=== PATIENT | female | born 2000 | race Caucasian/White ===

== ENCOUNTER 2024-10-31 09:30 | Inpatient (IN) | payer OTHER, SELFPAY ==
[2024-10-30 17:08] LABS: Hematocrit 37.6 % (37-47); Hemoglobin 12.6 g/dL (12.0-15.0); Immature Granulocytes Count 0.040 X10^3/uL (0.0-0.0); Mean Corp Hgb Conc 33.5 g/dL (32-36); Mean Corpuscular Volume 88.9 fL (81-99); Mean Platelet Vol. 11.1 fl (6.2-12.0); NRBC Flagged by Analyzer 0 % (0-5); Platelet Count 278 K/mm3 (150-450); RBC Distribution Width CV 14.9 % (11.6-14.6); RBC Distribution Width SD 48.3 fl (35.1-43.9); Red Blood Count 4.23 M/mm3 (4.2-5.4); White Blood Count 8.9 K/mm3 (4.4-11.0)
[2024-10-30 17:55] LABS: HIV Nonreactive (Nonreactive); Hepatitis B Surface Antigen Nonreactive (Nonreactive); Hepatitis C Antibody Nonreactive (Nonreactive); Syphilis Antibodies Nonreactive (Nonreactive)
[2024-10-31] VITALS (15 sets, daily range): BP systolic 93–121; BP diastolic 58–80; PULSE 54–103; RESP 14–23; TEMP 36.2–37; O2SAT 97–100; BMI 28.3
[2024-10-31] MEDS: Lactated Ringers 1,000 ML 999 ML IV (10:30)
[2024-10-31 11:03] LABS: Hematocrit 36.0 % (37-47); Hemoglobin 12.2 g/dL (12.0-15.0); Immature Granulocytes Count 0.030 X10^3/uL (0.0-0.0); Mean Corp Hgb Conc 33.9 g/dL (32-36); Mean Corpuscular Volume 88.9 fL (81-99); Mean Platelet Vol. 11.1 fl (6.2-12.0); NRBC Flagged by Analyzer 0 % (0-5); Platelet Count 254 K/mm3 (150-450); RBC Distribution Width CV 14.9 % (11.6-14.6); RBC Distribution Width SD 49.0 fl (35.1-43.9); Red Blood Count 4.05 M/mm3 (4.2-5.4); White Blood Count 8.7 K/mm3 (4.4-11.0)
--- NOTE | 2024-10-31 11:25 | PCM.PRE.AN2 ---
ASA Classification* ASA Classification ASA Classification: 1 Assessment & Plan Anesthesia* Anesthesia Assessment Anesthesia Assessment: Discussed sedation and/or anesthesia options, risks, benefits, and alternatives with patient/parents/legal guardian/POA. Questions invited. The patient/parents/legal guardian/POA seems to understand and agrees to proceed with anesthesia plan. Reviewed the physical assessment, medical history, allergy history and patient home medications list prior to surgery/procedure/anesthetic and documented any changes. Performed airway and anesthesia risk assessments. Anesthesia Type Anesthesia Type: Spinal Anesthesia Focused Assessment* Airway Assessment Mouth opens: >3 cm Mallampati Score: II Labs Anesthesia Preop lab: CBC WBC 8.7 K/mm3 (4.4-11.0) 10/31/24 10:30 10/31/24 RBC 4.05 M/mm3 (4.2-5.4) L 10/31/24 10:30 10/31/24 Hgb 12.2 g/dL (12.0-15.0) 10/31/24 10:30 10/31/24 Hct 36.0 % (37-47) L 10/31/24 10:30 10/31/24 Plt Count 254 K/mm3 (150-450) 10/31/24 10:30 10/31/24 CHEMISTRY COAG Pre-Assessment Diagnosis/Proposed Procedure Planned Operative Procedure(s): Primary Section Anesthesia History Anesthesia History - model photographers': Anesthesia History - model photographers' Hx Hospitalization Any Problems With Anesthesia Cholinesterase deficiency You/Your Family Experience fever (hyperthermia) with Relationship Recent Exposure to Contagious Disease Does patient have nerve stimulator Patient instructed to have device shut off --Does patient have Pacemaker or ICD? When Was Last Pacemaker Check QUESTION #4 FULL TEXT: You/Your Family Experience fever (hyperthermia) with Anesthesia Last Oral Intake Last Oral intake: Last Oral Intake NPO since Meds taken in AM with sips of water? Meds patient instructed to take am of surgery PONV PONV - model photographers': PONV - model photographers' Female HX of Motion Sickness HX of N/V After Surgery Non-Smoker Duration of Surgery greater than 60 minutes Number of Risk Factors PONV Score Height & Weight Height & Weight: Anesthesia: Height & Weight Height 5 ft 7 in 10/31/24 09:47 Weight: 82 kg 07/23/25 09:47 Body Mass Index (BMI) 28.3 10/31/24 09:47 Respiratory Assessment Respiratory Assessment - model photographers': Respiratory Tract Infection Hx - model photographers' Hx Respiratory Tract Infection STOP Sleep Apnea STOP Sleep Apnea - model photographers': STOP Sleep Apnea - model photographers' Hx Hypertension Hx Sleep Apnea CPAP BIPAP Do you snore loudly (louder than talking or can be heard Do you often feel tired/ fatigued/ sleepy during daytime? Has anyone observed you stop breathing during sleep? STOP Results QUESTION #5 FULL TEXT : Do you snore loudly (louder than talking or can be heard through closed doors)? Tobacco Use History Tobacco Use History - model photographers': Tobacco Use History - model photographers' Tobacco Use Smoking Status Never smoker 10/31/24 11:08 Hx Tobacco Use No 10/31/24 11:08 Years Smoking Packs Smoked per Day Smoking Cessation Date was within the last 15 years Hx Smoking Cessation Date Hx Smoking Cessation Counseling Hematologic Medial History Hematologic Hx - model photographers': Hematologic Medical Hx - director compliance Hx of Blood Transfusion Hx of Transfusion in last 3 Months Date of Last Transfusion (if within last 3 months) Ever experience any problems with transfusion(s)? Specify any problems Hx of Preganancy in last 3 Months Nurse Filling Out Transfusion & Questions: Date: Time: Patient unable to answer at this time (ie. confused, unrespo /Reproduction History /Reproductive History - model photographers': /Reproductive Hx- model photographers' Hx Now Yes 10/31/24 11:08 Gestational Age (in weeks): 40 10/31/24 11:08 EDC: 10/28/24 10/31/24 11:08 Hx 1 10/31/24 11:08 Hx Para 0 10/31/24 11:08 Hx Section SAB 0 10/31/24 11:08 Yes 10/31/24 11:08 Active Medications Active Medications: Current Medications Generic Name Dose Route Start Last Admin Trade Name Freq PRN Reason Stop Dose Admin Lactated Ringer's 1,000 mls @ 150 mls/hr 10/31/24 09:45 IV .[id number] TEDDY Sodium Chloride 5 - 15 ml 10/31/24 09:43 0.9% Saline Lock 10 Ml Syringe IV PRN PRN SALINE FLUSH PFSH Home Medications ?Medication ?Instructions ?Recorded ?Last Taken ?Type docosahexaenoic acid 200 mg mg PO 10/30/24 Unknown History capsule ( DHA) Allergy/AdvReac Type Severity Reaction Status Date / Time No Known Allergies Allergy Unverified 10/30/24 10:00 Family History (Updated 10/30/24 @ 16:04 by Kourtney Smith) Grandfather Myocardial infarction Social History (Updated 10/30/24 @ 16:04 by Kourtney Smith) Smoking Status: Never smoker alcohol intake: never substance use type: does not use caffeine: Yes what type of physical activity do you participate in: walking and swimming frequency: 5-6 times per week seatbelt use: always do you feel safe at home: Yes additional social history: -Baldo Review of Systems (Anesthesia) ROS Narrative System reviewed and no additional complaints, except as documented.
[2024-10-31] MEDS: Lactated Ringers 1,000 ML 150 ML IV (11:32)
--- NOTE | 2024-10-31 11:38 | HP.PCM.OB_ITS ---
HPI - General General Date of Admission: 10/31/24 HPI Narrative ANNIE DUFF, is a 24 y/o @ 40 weeks 3 days who presents to L&D for a scheduled section for breech presentation. Maternal Data Information DANDRE Calculator Estimated Delivery Date Method Current WG Current Estimate 10/28/24 LMP (Certain) 40w 3d PFSH PFSH Home Medications ?Medication ?Instructions ?Recorded ?Last Taken ?Type docosahexaenoic acid 200 mg mg PO DAILY vitamin 10/27/24 12:00 History capsule ( DHA) 600 mg Allergy/AdvReac Type Severity Reaction Status Date / Time No Known Allergies Allergy Unverified 10/30/24 10:00 Family History (Updated 10/30/24 @ 16:04 by Kourtney Smith) Grandfather Myocardial infarction Social History (Updated 10/30/24 @ 16:04 by Kourtney Smith) Smoking Status: Never smoker alcohol intake: never substance use type: does not use caffeine: Yes what type of physical activity do you participate in: walking and swimming frequency: 5-6 times per week seatbelt use: always do you feel safe at home: Yes additional social history: -Baldo History 1 Elective abortions Hx Para 0 Spontaneous abortions Hx # Term Pregnancies Ectopic pregnancies Hx # Pregnancies Multiple births # of living children Visit Details OB Flowsheet Initial Weight: Not Recorded Date -?-?-?-?-?-?-?-?-?-?-?-?- EGA Weight BP Urine Prot -?-?-?-?-?-?-?-?-?-?--?-?- Glucose FHR FuHt Pres Dilation -?-?-?-?-?-?-?-?-?-?-?-?- Effaced St Visit Note 10/30/24 -?-?-?-?-?-?-?-?-?-?-?-?- 40w 2d 180 lb 124/84 Negative -?-?-?-?-?-?-?-?-?-?-?-?- Negative 140 Breech 0 -?-?-?-?-?-?-?-?-?-?-?-?- JV- 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 Has s cheduled section tomorrow. ROS Constitutional Constitutional: Denies change in weight, fatigue, fever(s), headache(s), poor appetite or weakness Eyes Eyes: Denies blurry vision, change in vision, seeing flashes or spots in vision ENT HEENT: Denies dizziness, headache(s), loss taste/smell or sore throat Cardiovascular Cardiovascular: Denies chest pain, dizziness, dyspnea, irregular heart rhythm, leg edema, palpitations, rapid heart rate or vomiting Respiratory/Chest Respiratory/Chest: Denies chest tightness, cough, dyspnea or breast pain Gastrointestinal Gastrointestinal: Denies abdominal pain, anorexia, constipation, cramping, diarrhea, hemorrhoids, vomiting or weight changes Genitourinary Genitourinary: Denies dysuria, flank pain, genital lesions, genital pain, urinary frequency or urinary urgency Musculoskeletal Musculoskeletal: Denies back pain, difficulty walking, joint pain, limited range of motion, muscle cramps or numbness Integumentary Integumentary: Denies lesions or unusual bruising Neurologic Neurologic: Denies abnormal movements, abnormal speech, dizziness, numbness, seizure-like activity or syncope Psychiatric Psychiatric: Denies anxiety, behavioral changes, change in appetite, change in libido, cognitive impairment, confusion, depression, difficulty concentrating, hallucinations or suicidal thoughts Endocrine Endocrinology: Denies excessive sweating, polydipsia or polyuria Hematologic/Lymphatic Hematologic/Lymphatic: Denies easy bleeding, easy bruising or lymphadenopathy Allergic/Immunologic Allergic/Immunologic: Denies itchy eyes, lip swelling, seasonal rhinorrhea, rhinitis, throat swelling, tongue swelling, eczemia, wheezing or asthma Vital Signs Vital Signs Vital Signs: Weight Weight: 180 lb 12.465 oz Body Mass Index (BMI) 28.3 Physical Exam Const alert, oriented x3, no apparent distress and healthy appearing General Appearance: cooperative; Negative for anxious HEENT normocephalic Face and Sinus: normal facial exam Eyes EOMs intact bilaterally and no scleral icterus General Eye: normal appearance of both eyes Neck full ROM and supple Lymph Lymphatic: no lymphadenopathy noted Resp normal respiratory effort Effort and Inspection: able to speak in complete sentences Cardio regular rate GI soft to palpation and non-tender Inspection: gravid Palpation: soft; Negative for tender external exam normal Back/Spine no CVA tenderness Extremity normal to inspection, full ROM and no clubbing, cyanosis or edema General Extremity: Negative for calf tenderness or edema Skin Lesions: no lesions Rashes: no rashes Psych mental status grossly normal Labs Labs Labs: Blood Type A POSITIVE Antibody Screen NEGATIVE Hct 36.0 % (37-47) L Hgb 12.2 g/dL (12.0-15.0) Syphilis Total Ab Nonreactive (Nonreactive) Rubella IgG Antibody REAC (Nonreactive) Hep Bs Antigen Nonreactive (Nonreactive) Hepatitis C Antibody Nonreactive (Nonreactive) HIV 1&2 Antibody Nonreactive (Nonreactive) Assessment & Plan (1) Breech presentation of fetus: (2) Supervision of high-risk : COMMENT: DANDRE 10/28/24 :Baldo PLAN: Plan After discussing the patient's diagnosis and treatment plan options, patient wishes to proceed with surgical management. I have discussed with the patient the risks, benefits, and alternatives of the procedure which include but are not limited to risks of anesthesia, bleeding, infection, possible damage to bowel, bladder, or surrounding vasculature which could lead to additional surgery to evaluate any complications. Patient agrees to procedure and wishes to proceed. ACOG/uptodate references given for additional information regarding procedure.
--- NOTE | 2024-10-31 12:15 | DCINST_ITS ---
Discharge Instructions DC O2, CPAP, BIPAP needs Home O2 Discharge instructions: No Dressing / Incision Discharge Activity: May Not Drive (for 2 weeks or while taking narcotic pain medications.), May Shower and May Take a Tub Bath (in 7 days.) May resume sexual activity in: 4-6 weeks Weight Bearing Status: Full weight bearing Lifting Restrictions: 20 pounds Dressing / Incision Call your doctor if your incision/area has: Continuous Slow Oozing, Sudden Increased Bleeding, Increased Pain/ Swelling, Increased Redness and Foul Smelling Discharge Call your doctor if you observe: Fever of 101 or Higher and Using more than 1 pad per hour Suture Line Care: Avoid Pulling/Pushing and Avoid Pinching/Bending Cleanse incision/area with: Soap & Water and Keep Dressing Clean & Dry Follow Up Care Please Follow Up With: Noemi Rogers DO When: Call [phone] to make an appointment for an incision check in 1-2 weeks. Test Results: Test results from this visit will be discussed in further detail at your follow- up appointment, if applicable. Discharge Plan Admission Admit Date/Time: 10/31/24 09:30 Primary Reason for Your Visit: section Attending Provider: Noemi Rogers Primary Care Provider: Care PhysicianMagi Primary Discharge Orders/Prescriptions Prescriptions: New ibuprofen 800 mg tablet 800 mg PO Q8H PRN (Reason: pain) Qty: 30 0RF oxycodone-acetaminophen [Percocet] 5-325 mg tablet 1 tab PO Q4H PRN (Reason: pain) 7 Days Qty: 20 0RF Continued DHA 200 mg capsule PO DAILY Referrals / Follow Up: Care PhysicianMagi Primary [Primary Care Provider] - Disposition Disposition (needs filled in before D/C Order can be placed): Home, Self Care
--- NOTE | 2024-10-31 13:13 | EX.PCM.OBRPT ---
Assessment & Plan (1) Breech presentation of fetus: Maternal Data Information DANDRE Calculator Estimated Delivery Date Method Current WG Current Estimate 10/28/24 LMP (Certain) 40w 3d Final DANDRE: 10/28/24 Final DANDRE Source: LMP Gestational age: 40 weeks 3 days Operative Report (OB) Details Procedure Type: low transverse Date of Procedure: 10/31/24 Procedure Start Time: 12:32 Pre-Operative Diagnosis: Breech Post-Operative Diagnosis: Same as Pre-operative diagnosis Classification: Scheduled Type of Anesthesia: Spinal Antibiotic Given: Ancef 2 grams IV x1 Drain: Lo to straight drain Estimated Blood Loss: 300cc Findings Description of surgery: The patient was brought to the operating room, spinal anesthesia was found to be adequate. She was prepped and draped in the normal sterile fashion and was placed in a dorsal supine position with a leftward tilt. Pfannenstiel skin incision was made with a scalpel and carried through to the underlying layers. The fascia was nicked in the midline and extended laterally using Barrera scissors. The anterior aspect of the fascia was grasped with Michael clamps and the underlying rectus muscles dissected off using the Metzenbaum scissors. The rectus muscles were in the midline. Peritoneum was entered sharply. The uterus was identified and a bladder blade was inserted into the abdomen. Bladder flap was created off the uterus using Metzenbaum scissors. A transverse incision was made with a scalpel and extended laterally manually. The infant's feet were first to present and were gently grasped and guided out of the uterine incision. The legs and torso followed. The anterior shoulder was carefully swept across the chest. The was rotated to the opposite side and opposite arm was swept down and over the chest. The head was delivered with the help of my assistant gm of content & delivery using fundal pressure and also a finger in the mouth to flex the head. The mouth and nares were bulb suctioned. After a 30 second delay the cord was clamped and cut. The end was handed off to the awaiting jigsaw operator for routine assessment. Placenta was delivered manually without difficulty but was noted to be bilobed and sent for pathology analysis. The uterus was exteriorized and cleared of all clots and debris. Incision was closed with an 0 Vicryl suture in a running locked fashion. Second layer of 1-0 monocryl suture was used in imbricating manner to create excellent closure and hemostasis. The uterus was returned to the abdomen. The gutters were cleared of all clots and debris. The peritoneum was closed in a pursestring pattern using a 3-0 Vicryl suture. The fascia was closed with a stratafix suture. Subcutaneous tissue layer was irrigated then closed using a plain gut suture. The skin was closed with a 4-0 Monocryl subcuticular stitch. The skin was also sealed with surgical glue. The patient tolerated the procedure well sponge lap and needle counts were correct at each tissue closure plane and the patient is now being brought to the recovery room in stable condition. The assistant gm of content & delivery helped with retraction, suction, and suture cutting. She also helped with fundal pressure to assist with the delivery of the infant. Surgical findings: viable male Saul, normal uterus, tubes, and ovaries Presentation: Jamie Breech Amniotic Membrane Rupture Type: Artificial Amniotic Fluid Description: Clear Placental Delivery Description: Expressed Placenta Disposition: [facility] Specimen collected: No Cord Vessel Description: 3 Vessels Cord Entanglement: None Infant A gender: Male (1 minute): 8 (5 minute): 9 Delayed Cord Clamping: Yes Skip Hoist Engineer is/it project manager: Yes Dragline Engineer: Imtiaz Marx Tasks completed by journeyman operator assistant: Closing, Hemostasis: Clamp, Hemostasis: Electrocautery and Retracting Additional assistant gm of content & delivery?: No Complications Complications: No Admit VTE Documentation VTE Present on Admission: No VTE Mechan Device Prophylaxis: SCD's VTE Pharm Prophylaxis Ordered: No Multi Select Codes Urinary/Genital Urinary/Genital CPT Codes: 44853 Delivery [facility]
[2024-10-31] MEDS: Oxytocin 15 Units/NS 250ml 15 UNITS/250 ML IV.SOLN 83 UNITS IV (13:25)
[2024-10-31] MEDS: Ketorolac 30 MG/ML Syringe IV ×2 (14:31→19:59)
[2024-10-31] MEDS: 0.9% Saline Lock 10 ML Syringe IV ×2 (17:07→20:00)
--- OUTSIDE RECORDS SUMMARY | 2024-10-31 18:05 | XMS RPT_ITS | CCD ---
Author Organization [facility] Care Team Providers Care Ranch Manager Name Role Phone Dr. Noemi Rogers DO Attending Provider Medications Current Medications Medication Drug Class(es) Dates Sig (Normalized) Sig (Original) docosahexaenoic acid 200 mg oral capsule (1 source) Start: 10-30-2024 Docosahexaenoic Acid ( Dha) 200 mg capsule Active mg PO October 30, 2024 12:00am Problems Problem Classification Problem Date Documented Da te Episodic/Chronic Malposition; malpresentation (1 source) Breech presentation; Translations: [Maternal care for breech presentation, not applicable or unspecified] 10-30-2024 Episodic Other complications of (1 source) High risk ; Translations: [Supervision of high risk , unspecified, unspecified trimester] 10-30-2024 Episodic Comment on above: DANDRE 10/28/24 Hus band:Baldo Vital Signs Date Time Vital Sign Value Performing Clinician Michelle barksdale 10-30-2024 16:02-0400 Body height 170.[address] Noemi Rogers DO Work Phone: [facility] 10-30-2024 16:02-0400 Body mass index (BMI) [Ratio] 28.1 kg/m2 Dr. Noemi Rogers DO Work Phone: [facility] 10-30-2024 16:02-0400 Body weight 81.[address] Noemi Rogers DO Work Phone: [facility] 10-30-2024 16:02-0400 Diastolic blood pressure 84 mm[Hg] Dr. Noemi Rogers DO Work Phone: [facility] 10-30-2024 16:02-0400 Systolic blood pressure 124 mm[Hg] Dr. Noemi Rogers DO Work Phone: [facility] Encounters Encounter Date Encounter Type Care Provider Facility Start: 10-30-2024 End: 10-30-[address] Noemi Rogers DO Work Phone: -[facility] Start: 10-30-2024 End: 10-30-[address] Noemi Rogers DO -[facility] Work Phone: Plan of Treatment Date Care Activity Detail Author Polymerase chain reaction analysis [facility] Streptococcus agalac tiae [Presence] in Unspecified specimen by Organism specific culture [facility] Payers Date Payer Category Payer Policy ID Unknown [id number] Social History Date Type Detail Facility Start: 10-30-2024 Tobacco smoking stat us [place] Never smoked tobacco (finding) [facility] Start: 2000 Sex Assigned At Female [facility] Evaluation note Note Date & Type Note Facility Evaluation note No assessment information availa ble [facility] [employer] Work Phone: Reason for referral (narrative) Note Date & Type Note Facility Reason for referral (narrative) No reason for referral information available [facility] Work Phone: Chief Complaint and Reason for Visit Chief Complaint Admit Date Pre-op c/section 10/31/24 October 30, 2024 3:43pm Additional Source Comments Care Teams (unrecognized sec tion and content) Team Status: Inactive Member Role/Relationship Status Dates Dr. Noemi Rogers DO Attending Provider Activ e Start: October 30, 2024 End: October 30, 2024 Goals (unrecognized section and content) Goals may be documented in a n alternate section FOR RECORDS PERTAINING TO PATIENTS WHO ARE OR HAVE BEEN ENROLLED IN A CHEMICAL DEPENDENCY/SUBSTANCEABUSE PROGRAM, SOME INFORMATION MAY BE OMITTED. This clinical summary was aggregated from multiple sources. Caution should be exercised in using it in the provision of clinical care. This summary normalizes information from multiple sources, and as a consequence, information in this document may materially change the coding, format and clinical context of patient data. In addition, data may be omitted in some cases. CLINICAL DECISIONS SHOULD BE BASED ON THE PRIMARY CLINICAL RECORDS. [facility] [employer] [facility]. provides no warranty or guarantee of the accuracy or completeness of information in this document.
[2024-11-01 00:25] VITALS: BP 117/65; PULSE 70; RESP 16; O2SAT 98
[2024-11-01] MEDS: 0.9% Saline Lock 10 ML Syringe IV ×2 (02:20→08:27)
[2024-11-01] MEDS: Ketorolac 30 MG/ML Syringe IV ×2 (02:20→08:27)
[2024-11-01 02:34] VITALS: BP 110/66; PULSE 110; RESP 16; TEMP 36.2; O2SAT 97
[2024-11-01 06:40] LABS: Hematocrit 28.7 % (37-47); Hemoglobin 9.7 g/dL (12.0-15.0); Mean Corp Hgb Conc 33.8 g/dL (32-36); Mean Corpuscular Volume 88.6 fL (81-99); Mean Platelet Vol. 11.1 fl (6.2-12.0); Platelet Count 219 K/mm3 (150-450); RBC Distribution Width CV 14.9 % (11.6-14.6); RBC Distribution Width SD 48.1 fl (35.1-43.9); Red Blood Count 3.24 M/mm3 (4.2-5.4); White Blood Count 15.8 K/mm3 (4.4-11.0)
--- NOTE | 2024-11-01 07:30 | PCM.PN.OB ---
Subjective Subjective Patient doing well without complaints. Tolerating PO. Ambulating and voiding without difficulty. feeding well. Denies chest pain, shortness of breath, calf pain/swelling, fevers, chills, lightheadedness. Objective Data Objective Data Vital Signs: Vital Signs Temp Pulse Resp BP Pulse Ox O2 Del Method 97.2 F L 110 H 16 110/66 97 Room Air 11/01/24 02:34 11/01/24 02:34 11/01/24 02:34 11/01/24 02:34 11/01/24 02:34 11/01/24 02:34 Oxygen Delivery Method Room Air Weight: 180 lb 12.465 oz Body Mass Index (BMI) 28.3 Intake & Output: Intake and Output for Last 24 Hours 10/30/24 10/31/24 11/01/24 23:59 23:59 23:59 Intake Total 1407 / 1407 Output Total 200 / 200 100 / 100 Balance 1207 / 1207 -100 / -100 Lab / Micro Data 11/01/24 06:20 Labs: Laboratory Results - last 24 hr 10/30/24 16:10: WBC 8.9, RBC 4.23, Hgb 12.6, Hct 37.6, MCV 88.9, MCH 29.8, MCHC 33.5, RDW Std Deviation 48.3 H, RDW Coeff of Lopez 14.9 H, Plt Count 278, MPV 11.1, Immature Gran % (Auto) 0.500, Neut % (Auto) 79.6 H, Lymph % (Auto) 13.1 L, Trigg % (Auto) 5.6, Eos % (Auto) 1.0, Baso % (Auto) 0.2, Absolute Neuts (auto) 7.1, Absolute Lymphs (auto) 1.16, Nucleated RBC % 0, Hemoglobin A1c 5.2, Syphilis Total Ab Nonreactive, Hep Bs Antigen Nonreactive, Hepatitis C Antibody Nonreactive, HIV 1&2 Antibody Nonreactive, Rubella IgG Antibody REAC, Blood Type A POSITIVE, Antibody Screen NEGATIVE 10/31/24 10:30: WBC 8.7, RBC 4.05 L, Hgb 12.2, Hct 36.0 L, MCV 88.9, MCH 30.1, MCHC 33.9, RDW Std Deviation 49.0 H, RDW Coeff of Lopez 14.9 H, Plt Count 254, MPV 11.1, Immature Gran % (Auto) 0.300, Neut % (Auto) 77.1 H, Lymph % (Auto) 14.3 L, Trigg % (Auto) 6.5, Eos % (Auto) 1.6, Baso % (Auto) 0.2, Absolute Neuts (auto) 6.7, Absolute Lymphs (auto) 1.25, Nucleated RBC % 0, Blood Type A POSITIVE, Antibody Screen NEGATIVE 11/01/24 06:20: WBC 15.8 H, RBC 3.24 L, Hgb 9.7 L, Hct 28.7 L, MCV 88.6, MCH 29.9, MCHC 33.8, RDW Std Deviation 48.1 H, RDW Coeff of Lopez 14.9 H, Plt Count 219, MPV 11.1 Micro: Microbiology 10/30/24 Unknown Urine, Clean Catch Chlamydia/Neisseria (PCR) - Final ROS Constitutional Constitutional: Reports systems reviewed and no addt'l complaints, except as documented Cardiovascular Cardiovascular: Reports systems reviewed and no addt'l complaints, except as documented Respiratory/Chest Respiratory/Chest: Reports systems reviewed and no addt'l complaints, except as documented Gastrointestinal Gastrointestinal: Reports systems reviewed and no addt'l complaints, except as documented Physical Exam Const alert, oriented x3 and no apparent distress HEENT Head and Scalp: atraumatic Resp normal respiratory effort GI soft to palpation and non-tender Inspection: incision intact, healing well and drainage (none) Bimanual Exam - Vag & Uterus: uterus non-tender Uterus Palpation: uterus fundus firm (below Umbilicus) Assessment & Plan (1) Status post delivery: PLAN: Plan s/p LTCS PPD # 1 1. routine post care 2. breast feeding- support given 3. rh positive 4. rubella immune
[2024-11-01 08:00] VITALS: BP 109/68; PULSE 70; RESP 16; TEMP 36.1; O2SAT 97
[2024-11-01 14:45] VITALS: BP 96/94; PULSE 70; RESP 16; TEMP 36.2; O2SAT 99
[2024-11-01 20:38] VITALS: BP 113/59; PULSE 82; RESP 16; TEMP 36.6; O2SAT 98
[2024-11-02 02:05] VITALS: BP 131/81; PULSE 75; RESP 18; TEMP 36.7; O2SAT 100
--- NOTE | 2024-11-02 07:57 | PCM.PN.OB ---
Subjective Subjective Patient doing well without complaints. Tolerating PO. Ambulating and voiding without difficulty. Feeding well. Denies chest pain, shortness of breath, calf pain/swelling, fevers, chills, lightheadedness. Objective Data Objective Data Vital Signs: Vital Signs Temp Pulse Resp BP Pulse Ox O2 Del Method 98.0 F 75 18 131/81 H 100 Room Air 11/02/24 02:05 11/02/24 02:05 11/02/24 02:05 11/02/24 02:05 11/02/24 02:05 11/02/24 02:05 Oxygen Delivery Method Room Air Weight: 180 lb 12.465 oz Body Mass Index (BMI) 28.3 Intake & Output: Intake and Output for Last 24 Hours 10/31/24 11/01/24 11/02/24 23:59 23:59 23:59 Intake Total 1407 / 1407 Output Total 200 / 200 750 / 750 Balance 1207 / 1207 -750 / -750 Lab / Micro Data Attestation: I reviewed the patient's lab results. 11/01/24 06:20 Micro: Microbiology 10/30/24 Unknown Urine, Midstream Urine Culture - Preliminary Mixed Gram Positive Organisms 10/30/24 Unknown Urine, Clean Catch Chlamydia/Neisseria (PCR) - Final ROS Constitutional Constitutional: Reports systems reviewed and no addt'l complaints, except as documented; Denies anorexia or headache(s) Cardiovascular Cardiovascular: Reports systems reviewed and no addt'l complaints, except as documented; Denies dizziness, dyspnea, nausea or tachypnea Respiratory/Chest Respiratory/Chest: Reports systems reviewed and no addt'l complaints, except as documented; Denies cough, dyspnea, shortness of breath at rest or tachypnea Gastrointestinal Gastrointestinal: Reports systems reviewed and no addt'l complaints, except as documented; Denies abdominal pain, constipation or nausea Genitourinary Genitourinary: Reports systems reviewed and no addt'l complaints, except as documented; Denies burning urination, difficulty urinating, dysuria, urinary frequency or urinary incontinence Musculoskeletal Musculoskeletal: Reports systems reviewed and no addt'l complaints, except as documented Integumentary Integumentary: Reports systems reviewed and no addt'l complaints, except as documented Neurologic Neurologic: Reports systems reviewed and no addt'l complaints, except as documented; Denies abnormal speech, dizziness or headache(s) Psychiatric Psychiatric: Reports systems reviewed and no addt'l complaints, except as documented Endocrine Endocrinology: Reports systems reviewed and no addt'l complaints, except as documented Hematologic/Lymphatic Hematologic/Lymphatic: Reports systems reviewed and no addt'l complaints, except as documented Physical Exam Const alert, oriented x3 and no apparent distress Neck full ROM Resp normal respiratory effort, normal air movement and no retractions Effort and Inspection: able to speak in complete sentences and symmetric chest movement GI soft to palpation Inspection: incision intact Bladder / Kidney Exam: bladder normal to palpation Uterus Palpation: uterus fundus firm Extremity normal to inspection and full ROM Psych mental status grossly normal, thought process normal and cooperative Assessment & Plan (1) Status post delivery: PLAN: s/p LTCS PPD # 2 1. routine post care 2. breast feeding- support given 3. rh positive 4. rubella immune 5. Discharge home (2) Breech presentation of fetus: (3) Supervision of high-risk : COMMENT: DANDRE 10/28/24 :Baldo Charges/Coding Multi Select Codes Urinary/Genital Urinary/Genital CPT Codes: No Charge
[2024-11-02 08:30] VITALS: BP 110/69; PULSE 76; RESP 16; TEMP 36.4; O2SAT 98
[2024-11-02 14:45] VITALS: BP 106/72; PULSE 95; RESP 16; TEMP 36.2; O2SAT 98
== END 2024-11-02 16:50 | disposition home or self-care (01) | DRG 788 ==
PROVIDERS: Admitting Provider Obstetrics & Gynecology; Referring Provider Obstetrics & Gynecology; Visit Provider Obstetrics & Gynecology
PROC: 10D00Z1 Extraction of Products of Conception, Low, Open Approach (ICD-10-PCS; CPT 59514; principal; 2024-10-31 12:00)
DX: O32.1XX0 Maternal care for breech presentation, not applicable or unspecified (principal); Z37.0 Single live birth; Z3A.40 40 weeks gestation of pregnancy
CPT/HCPCS: 36415; 59025; 83036; 85025; 85027; 86703; 86762; 86780; 86803; 86850; 86900; 86901; 87077; 87081; 87086; 87088; 87186; 87340; 87491; 87591; 99221; A4216; G0378; J2405